=== PATIENT | male | born 1950 | race Caucasian/White ===

== ENCOUNTER 2017-05-01 17:41 | Observation (INO) | payer OTHER, BC ==
[~2017-05-01] VITALS: Ht 170.2 cm; Wt 68.1 kg
[~2017-05-01 17:41] MED LIST: ADVAIR HFA120 INHAL1 IH; ATORVASTATIN CA10 MG PO; DOCUSATE SODIU100 MG PO; ENDOCET 5-3251 EACH PO; FOLIC ACID1 MG PO; LISINOPRIL5 MG PO; LO-DOSE ASPIRIN81 M1 PO; NICOTINE PATCH1 EAC2 TD; OXYCODONE-APAP1 EACH PO; PROVENTIL,2.5 MG/0.5 AEROSOL; SENNA8.6 MG PO; THERAGRAN1 TABLET PO; VITAMIN B-1100 MG PO
[2017-05-01 18:53] LABS: HEMATOCRIT 36.1 % (38.0-50.0); MCH 29.6 PG (29.0-34.0); MCHC 33.2 G/DL (30.0-36.0); MCV 89.1 FL (86-99); PLATELET COUNT 180 K/uL (156-360); RBC DIS.WIDTH-CV 13.4 % (11.8-14.6); RBC DIS.WIDTH-SD 43.8 % (39-53); RED BLOOD COUNT 4.05 M/uL (4.00-5.50); WHITE BLOOD COUNT 5.4 K/uL (4.1-10.2)
[2017-05-01 19:07] LABS: CHLORIDE 114 mEq/L (99-109); POTASSIUM 3.5 mEq/L (3.7-5.4); SODIUM 149 mEq/L (136-147)
[2017-05-01 19:08] LABS: GLUCOSE 166 mg/dL (70-99)
[2017-05-01 19:12] LABS: CREATININE 0.8 mg/dL (0.6-1.3); GFR ESTIMATE (CALCULATED) > 59 mL/min/ (58.99-99999)
[2017-05-01 19:13] LABS: UREA NITROGEN (BUN) 23 mg/dL (9-23)
[2017-05-01 19:35] LABS: ABS NEUTROPHIL COUNT 4.2; ANISOCYTOSIS 2+; ATYPICAL LYMPHOCYTE 5.2 %; EOSINOPHIL ABS CT 0.2; EOSINOPHILS 3.5 % (0-5.0); LYMPHOCYTES 10.3 % (15.0-45.0); MICROCYTOSIS 2+; MONOCYTES 3.4 % (0-9.0); PLAT.SUFFICIENCY ADEQUATE; POIKILOCYTOSIS 1+; SEG.NEUTROPHILS 77.6 % (46.0-76.0)
[2017-05-01 20:09] LABS: APPEARANCE CLEAR ((CLEAR)); BILIRUBIN NEGATIVE; BLOOD NEGATIVE; COLOR YELLOW ((YELLOW)); GLUCOSE (STRIP) NEGATIVE; KETONES NEGATIVE; LEUKOCYTES NEGATIVE; NITRITE NEGATIVE; PROTEIN (STRIP) NEGATIVE; SPECIFIC GRAVITY 1.008 (1.000-1.030); UCUL ADDED? NO
[2017-05-01 20:17] LABS: AMPHETAMINE NEGATIVE (500 ng/mL); BARBITURATES NEGATIVE (200 ng/mL); BENZODIAZEPINES PRESUMPTIVE POSITIVE (150 ng/mL); BUPRENORPHINE NEGATIVE (10 ng/mL); COCAINE NEGATIVE (150 ng/mL); METHADONE NEGATIVE (200 ng/mL); METHAMPHETAMINE NEGATIVE (500 ng/mL); OPIATES (MORPHINE) NEGATIVE (100 ng/mL); OXYCODONE PRESUMPTIVE POSITIVE (100 ng/mL); PHENCYCLIDINE NEGATIVE (25 ng/mL); PROPOXYPHENE NEGATIVE (300 ng/mL); THC CANNABINOIDS NEGATIVE (50 ng/mL); TRICYCLIC ANTIDEPRESSANTS NEGATIVE (300 ng/mL)
[2017-05-01 20:42] LABS: BENZODIAZEPINES, URINE SCREEN Negative (200 ng/mL)
[2017-05-01] MEDS ORDERED: COLACE100 MG PO (23:15)
[2017-05-01] MEDS ORDERED: PRINIVIL20 MG PO (23:16)
[2017-05-01] MEDS ORDERED: ROXICODONE15 MG PO (23:18)
[2017-05-01] MEDS ORDERED: ANECREAM30 GM TP (23:18)
[2017-05-01] MEDS ORDERED: APRESOLINE25 MG PO ×3 (23:19→23:20)
[2017-05-01] MEDS ORDERED: PROTONIX40 MG PO (23:20)
[2017-05-01] MEDS ORDERED: XANAX1 MG PO (23:21)
[2017-05-01] MEDS ORDERED: CELEXA20 MG PO (23:21)
[2017-05-01] MEDS ORDERED: LIORESAL10 MG PO (23:21)
[2017-05-01] MEDS ORDERED: PROCARDIA XL60 MG PO (23:22)
[2017-05-01] MEDS ORDERED: MOBIC15 MG PO (23:22)
[2017-05-01] MEDS ORDERED: CRANBERRY TABL1 EACH PO (23:22)
[2017-05-01] MEDS ORDERED: OXYCONTIN20 MG PO (23:22)
[2017-05-02] MEDS ORDERED: AZITHROMYCIN500 M1 PO (13:29)
[2017-05-02 14:35] VITALS: BP 181/75
== END 2017-05-02 14:47 | disposition home or self-care (01) ==
LOC: EME 17:41 → EDOF 23:36 → ENRESERV 23:38 → EDOF 05-02 04:04 → CANRESERV 05-02 13:31 → ENRESERV 05-02 13:31 → EDOF 05-02 14:47
PROVIDERS: Emergency Medicine
DX: R41.82 Altered mental status, unspecified (principal); T40.2X1A Poisoning by other opioids, accidental (unintentional), initial encounter; J69.0 Pneumonitis due to inhalation of food and vomit; I25.10 Atherosclerotic heart disease of native coronary artery without angina pectoris; I10 Essential (primary) hypertension; Z86.73 Personal history of transient ischemic attack (TIA), and cerebral infarction without residual deficits; G93.89 Other specified disorders of brain; M19.90 Unspecified osteoarthritis, unspecified site; J44.9 Chronic obstructive pulmonary disease, unspecified; E78.5 Hyperlipidemia, unspecified; F17.200 Nicotine dependence, unspecified, uncomplicated; F10.11 Alcohol abuse, in remission; R33.9 Retention of urine, unspecified; Z60.2 Problems related to living alone; Z79.891 Long term (current) use of opiate analgesic; Z79.82 Long term (current) use of aspirin; Z88.0 Allergy status to penicillin
CPT/HCPCS: 70450; 71045; 80048; 81003; 82948; 83605; 84999; 85025; 87040; 93005; 94640; 99281; 99284; G0378; J1644; J1956; J2310; J2405; J7030; S0028